=== PATIENT | female | born 1960 | race Caucasian/White ===

== ENCOUNTER → 2016-12-02 | Outpatient (CLI) | payer MEDICARE, BC ==
[~2016-12-02] MED LIST: ANTIVERT/2525 MG PO; ASPIRIN 81MG TA81 MG PO; HYCODAN 1.5 MG-1 TAB PO; LISINOPRIL 10MG10 MG PO; LOVASTATIN40 MG PO; TRAMADOL 50MG T50 M1 PO; VENLAFAXINE HC100 MG PO
[2016-12-02 19:21] LABS: HEMOGLOBIN 15.6 g/dL (12.2-16.2); LYMPH # 2.6 K/mm3 (0.7-4.5); LYMPH % 28.6 % (10-50.0)
[2016-12-02 21:17] LABS: BUN 10 mg/dL (7-18)
[2016-12-02 21:18] LABS: GFR (ESTIMATED) 65 ML/MIN (59-)
[2016-12-04 12:36] LABS: HBsAg Screen Negative (Negative); Hep A Ab, IgM Negative (Negative); Hep B Core Ab, IgM Negative (Negative); Hep C Virus Ab <0.1 (0.0-0.9)
== END ==
LOC: LAB 19:08
PROVIDERS: Emergency Medicine
DX: R53.83 Other fatigue (principal); Z79.899 Other long term (current) drug therapy

== ENCOUNTER → 2016-12-25 | Outpatient (CLI) | payer MEDICARE ==
--- NOTE | 2016-12-28 10:42 | RADIOLOGY REPORT PS360 ---
DIG MAMM-SCREEN JOSÉ LUIS W/CAD CAD Screening COMPARISON: Digital mammograms 10/17/2011 and 01/22/2013 INDICATION: There is no personal or family history of breast cancer TECHNIQUE: Standard CC and MLO images were obtained. R2 CAD reviewed. FINDINGS: Scattered diffuse fibroglandular densities are seen throughout both breast. There are multiple benign-appearing microcalcifications in each breast. There is a biopsy clip upper outer quadrant right breast. There is a mole marker left breast. There is no suspicious lesion and there are no suspicious microcalcifications. IMPRESSION: Fibrofatty parenchyma with no suspicious lesion seen recommend yearly follow-up BI-RADS CATEGORY: 2_Benign RECOMMENDED FOLLOWUP: 12M 12 MONTH FOLLOW-UP (A letter has been sent to the patient regarding results of the study.)
== END ==
LOC: RAD 08:30
DX: Z12.31 Encounter for screening mammogram for malignant neoplasm of breast (principal)
CPT/HCPCS: G0202